=== PATIENT | female | born 1995 | race Asian ===

== ENCOUNTER 2023-11-18 08:22 | Day surgery (SDC) | payer OTHER ==
[~2023-11-18] VITALS: Ht 152.4 cm; Wt 44.9 kg
[~2023-11-18 08:22] MED LIST: AMOXICILLIN/CLA1 TA1 PO; DUO-KAPS1 CAP PO; FOLIC ACID 11 MG/TA1 PO; K-DUR 10 MEQ T10 MEQ PO; LR 1,000 ML IV SCH; Ondansetron 4 MG/2 ML VIAL IV PRN; TAPAZOLE5 MG PO; THIAMINE 1100 MG/TAB PO
[2023-11-18] MEDS ORDERED: FERROUSAL325 MG PO (09:18)
[2023-11-18] MEDS ORDERED: ATARAX 25MG25 MG/TAB PO (09:19)
[2023-11-18 09:30] VITALS: BP 98/80; PULSE 73; TEMP 97.3
[2023-11-18] MEDS ORDERED: Lidocaine PF 2% (20 MG/ML) 5 ML VIAL ONE (09:39)
[2023-11-18 10:30] VITALS: BP 97/79; PULSE 74; TEMP 98.2
--- NOTE | 2023-11-18 10:30 | NUR ---
PATIENT RETURNS TO [facility] IN ENDOSCOPY. VS WNL. PATIENT REQUESTS WATER AND VANILLA PUDDING. AND PHYSICIAN AT BEDSIDE. CALL LIGHT WITHIN REACH. WILL CONTINUE TO MONITOR.
[2023-11-18 10:45] VITALS: BP 106/88; PULSE 61
--- NOTE | 2023-11-18 10:45 | NUR ---
PATIENT IS DOING WELL. SHE DENIES ANY PAIN OR NAUSEA AFTER EATING AND DRINKING. VS WNL. IV DISCONTINUED. WILL CONTINUE TO MONITOR.
[2023-11-18 11:00] VITALS: BP 111/87; PULSE 62
--- NOTE | 2023-11-18 11:00 | NUR ---
PATIENT IS DOING WELL. SHE IS READY FOR DISCHARGE. INSTRUCTIONS REVIEWED WITH PATIENT AND HER . LAST SET OF VITALS WNL. WILL DISCHARGE ONCE PATIENT IS DRESSED.
== END 2023-11-18 11:07 | disposition home or self-care (01) ==
LOC: SDCO 08:22
DX: K92.0 Hematemesis (principal); Q39.8 Other congenital malformations of esophagus; K29.70 Gastritis, unspecified, without bleeding; K22.89 Other specified disease of esophagus; K29.50 Unspecified chronic gastritis without bleeding; K20.90 Esophagitis, unspecified without bleeding; K92.1 Melena; K64.0 First degree hemorrhoids; R79.89 Other specified abnormal findings of blood chemistry; F17.210 Nicotine dependence, cigarettes, uncomplicated; Z87.11 Personal history of peptic ulcer disease
CPT/HCPCS: J2704; J7120